=== PATIENT | male | born 2000 | race Caucasian/White ===

== ENCOUNTER 2023-06-27 20:42 | Emergency (ER) | payer BC ==
[2023-06-27 22:40] LABS: SARS-CoV-2 NAA Rapid Test Not Detected (NotDetected)
[2023-06-27] MEDS ORDERED: predniSONE 20 MG TAB ONE ×2 (23:46→23:50)
== END 2023-06-27 23:52 | disposition home or self-care (01) ==
LOC: CSHERS 20:42
DX: J20.9 Acute bronchitis, unspecified (principal); J45.909 Unspecified asthma, uncomplicated; Z20.822 Contact with and (suspected) exposure to COVID-19
CPT/HCPCS: 71046; J7512